=== PATIENT | male | born 1995 | race African-American/Black ===

== ENCOUNTER 2018-07-28 00:19 | Emergency (ER) | payer MEDICAID ==
[~2018-07-28] VITALS: Ht 177.8 cm; Wt 68.0 kg
[2018-07-28] MEDS ORDERED: CEFTRIAXONE SODIUM 250 MG/VIAL IM ONE (04:00)
[2018-07-28] MEDS ORDERED: AZITHROMYCIN 500 MG TABLET PO ONE (04:00)
[2018-07-28 04:24] LABS: CLARITY URINE CLOUDY (CLEAR); COLOR URINE DARK YELLOW (YELLOW); KETONES URINE TRACE (NEGATIVE); LEUKOCYTE ESTERASE URINE 3+ (NEGATIVE); NITRITE URINE NEGATIVE (NEGATIVE); OCCULT BLOOD URINE NEGATIVE (NEGATIVE); PH URINE 6.5 (4.5-8.0); PROTEIN URINE 2+ (NEGATIVE); SPECIFIC GRAVITY URINE 1.037 (1.005-1.030)
[2018-07-28 06:32] VITALS: BP 133/77
[2018-07-29 13:06] LABS: HIV SCREEN 4G Non Reactive (Non Reactive)
[2018-07-31 04:18] LABS: CHLAMYDIA TRACHOMATIS NAA Negative (Negative); NEISSERIA GONORRHOEAE NAA Positive (Negative)
== END 2018-07-28 09:32 | disposition home or self-care (01) ==
LOC: ER 09:32
DX: N34.2 Other urethritis (principal); M54.9 Dorsalgia, unspecified; N50.819 Testicular pain, unspecified; F12.10 Cannabis abuse, uncomplicated; F15.10 Other stimulant abuse, uncomplicated; F17.200 Nicotine dependence, unspecified, uncomplicated; Z88.0 Allergy status to penicillin
CPT/HCPCS: 81003; 86592; 87086; 87389; 87491; 87591; 96372; 99284; J0696

== ENCOUNTER 2018-07-31 16:58 | Emergency (ER) | payer MEDICAID ==
[~2018-07-31] VITALS: Ht 177.8 cm; Wt 73.0 kg
[2018-07-31 17:24] VITALS: BP 99/54
== END 2018-07-31 20:00 | disposition left against medical advice (07) ==
LOC: ER 16:58
DX: R51 Headache (principal); Z53.21 Procedure and treatment not carried out due to patient leaving prior to being seen by health care provider

== ENCOUNTER 2018-10-27 04:25 | Emergency (ER) | payer MEDICAID ==
[~2018-10-27] VITALS: Ht 175.3 cm; Wt 68.0 kg
[2018-10-27] MEDS ORDERED: KETOROLAC 30MG/ML VIAL IM ONE (06:30)
[2018-10-27] MEDS ORDERED: AZITHROMYCIN 500 MG TABLET PO ONE (06:30)
[2018-10-27] MEDS ORDERED: DEXAMETHASONE 10 MG/ML VIAL IM ONE (06:30)
[2018-10-27 07:05] VITALS: BP 129/77
== END 2018-10-27 07:05 | disposition home or self-care (01) ==
LOC: ER 04:25
DX: J02.9 Acute pharyngitis, unspecified (principal); Z88.0 Allergy status to penicillin; Z87.891 Personal history of nicotine dependence
CPT/HCPCS: 96372; 99283; J1100; J1885

== ENCOUNTER 2018-11-08 22:52 | Emergency (ER) | payer MEDICAID ==
[~2018-11-08] VITALS: Ht 177.8 cm; Wt 68.0 kg
[2018-11-09] MEDS ORDERED: LORAZEPAM 2MG/ML CPJ IM ONE (00:15)
[2018-11-09 00:40] LABS: HEMATOCRIT. 38.8 % (42.0-52.0); HEMOGLOBIN. 13.3 g/dL (14.0-18.0); MEAN CORPUSCULAR HEMOGLOBIN 30.4 pg (28.0-32.0); MEAN CORPUSCULAR VOLUME 88.8 fL (80.0-94.0); RED BLOOD CELL COUNT 4.37 mill/uL (4.7-6.1); RED CELL DISTRIBUTION WIDTH 14.4 % (11.6-14.6)
[2018-11-09 00:44] LABS: CHLORIDE 108 mEq/L (98-107)
[2018-11-09 00:50] LABS: ETHANOL BLOOD < 10 mg/dL
[2018-11-09 03:11] LABS: METHADONE URINE SCREEN NEGATIVE (NEGATIVE); OPIATES URINE SCREEN NEGATIVE (NEGATIVE)
[2018-11-09 03:12] LABS: *AMPHETAMINES SCREEN URINE PRESUMTIVE POSITIVE (NEGATIVE); *BARBITURATES SCREEN URINE NEGATIVE (NEGATIVE); *BENZODIAZEPINES SCREEN URINE NEGATIVE (NEGATIVE); *COCAINE SCREEN URINE NEGATIVE (NEGATIVE); CANNABINOID URINE SCREEN PRESUMTIVE POSITIVE (NEGATIVE); PHENCYCLIDINE URINE SCREEN NEGATIVE (NEGATIVE)
[2018-11-09 07:20] LABS: PLATELET ESTIMATE NORMAL
[2018-11-09 07:21] LABS: MEAN PLATELET VOLUME 9.2 fl (7.4-10.4); PLATELET 217 x1000/uL (130-400)
[2018-11-09] MEDS ORDERED: LORAZEPAM 1MG TABLET PO ONE (09:00)
[2018-11-09 17:28] VITALS: BP 104/57
== END 2018-11-09 17:34 | disposition home or self-care (01) ==
LOC: ER 22:52
DX: R45.851 Suicidal ideations (principal); F17.200 Nicotine dependence, unspecified, uncomplicated; Z88.0 Allergy status to penicillin
CPT/HCPCS: 36415; 80048; 80305; 80307; 80329; 82962; 85025; 93005; 96372; 99284; G0482; J2060

== ENCOUNTER 2018-12-07 20:02 | Emergency (ER) | payer MEDICAID | END 2018-12-07 21:36 | disposition left against medical advice (07) | LOC: ER 20:02 | DX: M79.89 Other specified soft tissue disorders (principal); Z53.21 Procedure and treatment not carried out due to patient leaving prior to being seen by health care provider ==

== ENCOUNTER 2018-12-20 03:43 | Emergency (ER) | payer MEDICAID ==
[~2018-12-20 03:43] MED LIST: CYCLOBENZAPRINE 10MG TABLET ONE; IBUPROFEN 600MG TABLET ONE
[2018-12-20] MEDS ORDERED: CYCLOBENZAPRINE 10MG TABLET PO SCH (04:46)
[2018-12-20] MEDS ORDERED: IBUPROFEN 600MG TABLET PO SCH (04:46)
== END 2018-12-20 05:08 | disposition home or self-care (01) ==
LOC: ER 04:55
DX: G89.29 Other chronic pain (principal); M54.5 Low back pain; Z88.0 Allergy status to penicillin
CPT/HCPCS: 99283

== ENCOUNTER 2019-03-02 14:48 | Emergency (ER) | payer MEDICAID ==
[~2019-03-02] VITALS: Ht 180.3 cm; Wt 66.8 kg
[2019-03-02] MEDS ORDERED: LIDOCAINE HCL 1% 20ML VIAL (Pyxis) INJ INFIL ONE (17:30)
[2019-03-02] MEDS ORDERED: CEFTRIAXONE SODIUM 250 MG/VIAL IM ONE (17:30)
[2019-03-02] MEDS ORDERED: AZITHROMYCIN 500 MG TABLET PO ONE (17:30)
[2019-03-02 17:33] LABS: CLARITY URINE CLEAR (CLEAR); COLOR URINE YELLOW (YELLOW); KETONES URINE TRACE (NEGATIVE); LEUKOCYTE ESTERASE URINE 2+ (NEGATIVE); NITRITE URINE NEGATIVE (NEGATIVE); OCCULT BLOOD URINE NEGATIVE (NEGATIVE); PROTEIN URINE TRACE (NEGATIVE)
[2019-03-02 18:42] VITALS: BP 130/73
== END 2019-03-02 18:44 | disposition home or self-care (01) ==
LOC: ER 14:48
DX: N34.2 Other urethritis (principal); F17.200 Nicotine dependence, unspecified, uncomplicated; Z88.0 Allergy status to penicillin
CPT/HCPCS: 81003; 96372; 99283; J0696; J3490

== ENCOUNTER 2019-04-02 15:26 | Emergency (ER) | payer MEDICAID ==
[~2019-04-02] VITALS: Ht 180.3 cm; Wt 69.4 kg
[2019-04-02 17:41] VITALS: BP 125/85
[2019-04-02] MEDS: KETOROLAC 60MG/2ML VIAL IM ONE (17:41)
[2019-04-02] MEDS: CYCLOBENZAPRINE 10MG TABLET PO ONE (17:41)
== END 2019-04-02 18:40 | disposition home or self-care (01) ==
LOC: ER 15:26
DX: M79.631 Pain in right forearm (principal); G56.21 Lesion of ulnar nerve, right upper limb; F12.10 Cannabis abuse, uncomplicated; F15.10 Other stimulant abuse, uncomplicated; Z98.890 Other specified postprocedural states; Z88.0 Allergy status to penicillin
CPT/HCPCS: 96372; 99283; J1885; A4565